=== PATIENT | female | born 1965 | race Caucasian/White ===

== ENCOUNTER 2022-06-14 18:07 | Emergency (ER) | payer OTHER ==
[~2022-06-14] VITALS: Ht 165.1 cm; Wt 100.0 kg
[2022-06-14 18:10] VITALS: BP 132/79
[2022-06-14] MEDS ORDERED: DIAZ5TAB22 PO (18:29)
[2022-06-14] MEDS ORDERED: PRED10TA23 PO (18:29)
[2022-06-14] MEDS ORDERED: MELO-102 PO (18:29)
[2022-06-14] MEDS ORDERED: DICL20GE TOP (18:29)
[2022-06-14] MEDS ORDERED: diazepam 5mg tablet PO ONE (18:30)
[2022-06-14] MEDS ORDERED: ketorolac trometh. 30mg/ml inj. IM ONE (18:30)
== END 2022-06-14 18:47 | disposition home or self-care (01) ==
LOC: ER 18:08
DX: S39.012A Strain of muscle, fascia and tendon of lower back, initial encounter (principal); G89.29 Other chronic pain; X58.XXXA Exposure to other specified factors, initial encounter; Y93.89 Activity, other specified; Y92.89 Other specified places as the place of occurrence of the external cause; Y99.8 Other external cause status
CPT/HCPCS: 96372; 99283; J1885

== ENCOUNTER 2022-07-29 15:20 | Outpatient (CLI) | payer OTHER ==
[~2022-07-29 15:20] MED LIST: DICL20GE TOP; MELO-102 PO
== END 2022-07-29 23:59 | disposition home or self-care (01) ==
LOC: RAD 15:20
PROVIDERS: ATTEND Psychiatry & Neurology Pain Medicine
DX: M51.16 Intervertebral disc disorders with radiculopathy, lumbar region (principal); M51.27 Other intervertebral disc displacement, lumbosacral region; M25.78 Osteophyte, vertebrae; M41.9 Scoliosis, unspecified
CPT/HCPCS: 72148

== ENCOUNTER 2022-08-11 11:16 | Emergency (ER) | payer BC, OTHER ==
[~2022-08-11] VITALS: Ht 165.1 cm; Wt 100.0 kg
[2022-08-11 11:49] VITALS: BP 142/84
[2022-08-11] MEDS ORDERED: PRED10TA23 PO (13:31)
== END 2022-08-11 15:43 | disposition home or self-care (01) ==
LOC: ER 11:17
DX: M54.50 Low back pain, unspecified (principal); G89.29 Other chronic pain; Z98.890 Other specified postprocedural states
CPT/HCPCS: 99283

== ENCOUNTER 2022-10-15 15:26 | Emergency (ER) | payer BC ==
[~2022-10-15] VITALS: Ht 165.1 cm; Wt 100.0 kg
[2022-10-15 15:29] VITALS: BP 139/93
--- NOTE | 2022-10-15 16:29 | NUR ---
PT ASSESSED BY SALES AND MARKETING AGENT JE.
== END 2022-10-15 16:29 | disposition home or self-care (01) ==
LOC: ER 15:27
DX: G89.29 Other chronic pain (principal); M54.59 Other low back pain; Z79.899 Other long term (current) drug therapy
CPT/HCPCS: 72110; 99283

== ENCOUNTER 2022-12-02 21:27 | Emergency (ER) | payer BC ==
[~2022-12-02] VITALS: Ht 165.1 cm; Wt 100.0 kg
[2022-12-02 21:30] VITALS: BP 140/71
[2022-12-02] MEDS ORDERED: HYDROcodone/acetaminophen 10/325mg tab PO STA (21:37)
[2022-12-02] MEDS ORDERED: ketorolac trometh inj. 60 MG/2 ML VIAL IM ONE (22:35)
[2022-12-02] MEDS ORDERED: HYDR-3965 PO ×2 (22:58)
[2022-12-10] MEDS ORDERED: HYDR-3972 PO (14:58)
[2022-12-10] MEDS ORDERED: RIZA-5 PO (14:58)
[2022-12-10] MEDS ORDERED: PANT20TA2 PO (14:58)
[2022-12-10] MEDS ORDERED: ESCI10TA PO (14:58)
[2022-12-10] MEDS ORDERED: EZET10TA6 PO (14:58)
== END 2022-12-02 23:56 | disposition home or self-care (01) ==
LOC: ER 21:29
DX: S82.431A Displaced oblique fracture of shaft of right fibula, initial encounter for closed fracture (principal); G89.29 Other chronic pain; M54.9 Dorsalgia, unspecified; X58.XXXA Exposure to other specified factors, initial encounter; Y93.89 Activity, other specified; Y92.89 Other specified places as the place of occurrence of the external cause; Y99.8 Other external cause status
CPT/HCPCS: 29515; 73560; 73610; 73630; 96372; 99284; J1885; L1930; A6449

== ENCOUNTER 2022-12-08 10:47 | Outpatient (CLI) | payer BC ==
[~2022-12-08 10:47] MED LIST changes: +HYDR-3965 PO
== END 2022-12-08 23:59 | disposition home or self-care (01) ==
LOC: RAD 10:47
PROVIDERS: ATTEND Podiatrist Foot & Ankle Surgery
DX: S82.231A Displaced oblique fracture of shaft of right tibia, initial encounter for closed fracture (principal); S93.439A Sprain of tibiofibular ligament of unspecified ankle, initial encounter; S93.629A Sprain of tarsometatarsal ligament of unspecified foot, initial encounter; M25.471 Effusion, right ankle; M79.671 Pain in right foot; X58.XXXA Exposure to other specified factors, initial encounter; Y93.89 Activity, other specified; Y92.89 Other specified places as the place of occurrence of the external cause; Y99.8 Other external cause status
CPT/HCPCS: 73700

== ENCOUNTER 2023-07-05 10:15 | Outpatient (CLI) | payer BC ==
[~2023-07-05 10:15] MED LIST changes: -DICL20GE TOP; +ESCI10TA PO; +EZET10TA6 PO; -HYDR-3965 PO; +HYDR-3972 PO; -MELO-102 PO; +PANT20TA2 PO; +RIZA-5 PO
== END 2023-07-05 23:59 | disposition home or self-care (01) ==
LOC: RAD 10:15
PROVIDERS: ATTEND Specialist
DX: M51.24 Other intervertebral disc displacement, thoracic region (principal); M48.062 Spinal stenosis, lumbar region with neurogenic claudication; M54.17 Radiculopathy, lumbosacral region
CPT/HCPCS: 72146

== ENCOUNTER 2023-08-24 11:14 | Emergency (ER) | payer BC ==
[~2023-08-24] VITALS: Ht 165.1 cm; Wt 99.1 kg
[2023-08-24] MEDS ORDERED: NAPR-56 PO (12:23)
[2023-08-24 12:50] VITALS: BP 131/72; PULSE 98; RESP 16; TEMP 97.9; O2SAT 99
== END 2023-08-24 12:52 | disposition home or self-care (01) ==
LOC: ER 11:15
DX: S60.212A Contusion of left wrist, initial encounter (principal); X58.XXXA Exposure to other specified factors, initial encounter; Y93.89 Activity, other specified; Y92.89 Other specified places as the place of occurrence of the external cause; Y99.8 Other external cause status
CPT/HCPCS: 29125; 73110; 73130; 99284

== ENCOUNTER → 2024-06-06 | Outpatient (CLI) | payer MEDICAID | END | disposition home or self-care (01) | LOC: MRI02 10:21 | PROVIDERS: ATTEND Physician Assistant | DX: M18.12 Unilateral primary osteoarthritis of first carpometacarpal joint, left hand (principal); M25.532 Pain in left wrist; M19.032 Primary osteoarthritis, left wrist; M77.8 Other enthesopathies, not elsewhere classified; M25.432 Effusion, left wrist | CPT/HCPCS: 73221 ==